=== PATIENT | male | born 1940 | race Caucasian/White ===

== ENCOUNTER 2018-04-24 15:45 | Inpatient (IN) | payer MEDICARE ==
[2018-04-24] MEDS ORDERED: Fentanyl 100 MCG/2 ML VIAL ONE (17:05)
--- NOTE | 2018-04-24 17:31 | CT ---
CT BRAIN WITHOUT CONTRAST: Date: 04/24/18 HISTORY: Fall. Headache. FINDINGS: No evidence of infarct, hemorrhage, midline shift, or abnormal extra-axial fluid collections are seen . The ventricular size is normal and the basilar cisterns are patent. The bony calvarium is intact. T he visualized paranasal sinuses and mastoid air cells are well aerated. IMPRESSION: No CT evidence of acute intracranial process. POS: [facility]
[2018-04-24] MEDS ORDERED: Acetaminophen 325 MG TAB PO PRN (17:44)
[2018-04-24] MEDS ORDERED: Milk Of Magnesia 30 ML UDCUP PO PRN (17:44)
[2018-04-24] MEDS ORDERED: Ondansetron PF 4 MG/2 ML Vial IV PRN (17:44)
[2018-04-24] MEDS ORDERED: [UNRECOGNIZED DRUG - OTHER] FS PRN (17:45)
[2018-04-24] MEDS: Sodium Chloride 0.9% 120 ML IV SCH (19:56)
[2018-04-24] MEDS: traMADol HCl 50 MG TAB PO PRN (19:56)
[2018-04-24 20:20] VITALS: BMI 28.8
[2018-04-24] MEDS: Fentanyl 100 MCG/2 ML VIAL SLOW IVP PRN (23:19)
--- NOTE | 2018-04-25 01:03 | CON ---
DATE OF CONSULTATION: 04/24/2018 CHIEF COMPLAINT: Right hip pain. HISTORY OF PRESENT ILLNESS: Mr. Fraser is a 77-year-old male. The patient fell in his home last ni ght. He lost his balance and tripped. He was unable to ambulate. He was unable to arise. He crawl ed around his house. It took most of today until he was found. He was taken to [facility] in [place] by EMS. X-rays were obtained, which demonstrated a femoral neck fracture. He was transferred to [place] for further care. He is comfortable currently. He has received intravenou s fluids. He has been found to have rhabdomyolysis. PAST MEDICAL HISTORY: Atrial fibrillation or flutter, hypertension, hyperlipidemia, GERD, obesity. PAST SURGICAL HISTORY: Left knee arthroscopic surgery, history of hemorrhoid surgery in the past. ALLERGIES: None. FAMILY MEDICAL HISTORY: Noncontributory. SOCIAL HISTORY: The patient denies alcohol, tobacco or drug use. He lives independently. He does n ot use a cane or a walker. REVIEW OF SYSTEMS: Positive for right hip pain with movement, otherwise negative 10-point review of systems. IMAGES: X-rays of the right hip are reviewed. These demonstrate an acute displaced femoral neck fra cture on the right side. PHYSICAL EXAMINATION: VITAL SIGNS: Stable. GENERAL: The patient is alert and oriented, sitting upright, in no apparent distress. RESPIRATORY: Breathing comfortably. CARDIOVASCULAR: Pulses palpable and regular. MUSCULOSKELETAL: The patient's right leg is shortened and externally rotated. He has intact neurova scular status distally. He is able to flex and extend the foot and ankle and toes. Palpable pulses. IMPRESSION: Elderly male, status post fall with right femoral neck fracture. PLAN: At this point, the patient will be admitted to the hospital. He will need intravenous fluids for his rhabdomyolysis. He will need a repeat CK exam. He will be n.p.o. at midnight in preparation for surgery tomorrow. The patient's femoral neck fracture will be treated with hemiarthroplasty of the hip to restore function, mobility and allow early mobilization. Risks do include infection, pain , scarring, nerve or vascular injury, instability and others. He will have appropriate DVT prophylax is and antibiotic prophylaxis.
[2018-04-25] MEDS: Sodium Chloride 0.9% 1,000 ML IV SCH ×3 (01:19→22:59)
[2018-04-25] MEDS: Sodium Chloride 0.9% 120 ML IV SCH ×2 (01:19→01:20)
--- NOTE | 2018-04-25 01:58 | HP ---
DATE OF ADMISSION: 04/24/2018 CHIEF COMPLAINT: Fall. HISTORY OF PRESENT ILLNESS: This is a 77-year-old male who presents with injuries sustained from a fall early this morning. He was limited in mobility after and had a difficult time notifying anyone spent a lot of time lying on the ground throughout the day. He has been found to have a mild rhabdomyolysis as well as a hip fracture. He is confused of the events to some extents and states to me that he remembers everything that happened. No previous history of multiple falls. This has never happened to him before. He is being admitted by the Trauma Service and Dr. Colorado has seen for the hip fracture. PAST MEDICAL HISTORY: Includes atrial flutter, hypertension, GERD, depression. MEDICINES: Flecainide, hydrochlorothiazide, BuSpar and aspirin are the ones he can remember. PAST SURGICAL HISTORY: Includes knee scope. ALLERGIES: No known drug allergies. SOCIAL HISTORY: No smoking, alcohol or other drugs. REVIEW OF SYSTEMS: Otherwise, negative unless described above. He specifically denies chest pain, dyspnea, diplopia. No nausea, vomiting, no abdominal pain, no other extremity pain. PHYSICAL EXAMINATION: VITAL SIGNS: Blood pressure is 125/60, his pulse is 104, respirations 12. CRANIOFACIAL: No craniofacial trauma. HEENT: Sclerae anicteric. Oropharynx is clear. NECK: No lymphadenopathy. No ecchymoses, no bruits, no tenderness on palpation to posterior C-spine. LUNGS: Bilateral clear breath sounds. HEART: Regular rate. ABDOMEN: Soft, nontender. Bilateral lower extremities. Warm and well perfused with palpable pulses. Motor and sensory intact. LABORATORY DATA AND SCANS: X-rays from outside hospital. Plain films show right femoral neck fracture. CT head here is negative. ASSESSMENT: 1. Fall with right hip fracture. 2. History of chronic atrial flutter. 3. Rhabdomyolysis: mild by report. Labs not available for review here. PLAN: Admit to Trauma Service, Dr. Colorado is at bedside as well. Operative repair tomorrow. We will hydrate for the mild rhabdomyolysis tonight. Repeat labs in am. MTDD
[2018-04-25] MEDS: traMADol HCl 50 MG TAB PO PRN ×2 (03:35→09:18)
[2018-04-25 06:18] LABS: #Monocytes 0.9 thou/uL (0.11-0.59); #Neutrophils 7.7 thou/uL (1.40-6.50); %Eosinophils 0.3 % (0.0-10.0); %Lymphocytes 10.6 % (21.0-51.0); %Monocytes 9.2 % (0.0-10.0); %Neutrophils 79.9 % (42.0-75.0); Hemoglobin 12.9 g/dL (14.0-18.0); Mean Corpuscular HGB CONC 31.1 g/dL (32.0-36.0); Mean Corpuscular Volume 89.9 fL (78.0-98.0); Mean Platelet Volume 10.1 fL (7.4-10.4); PLT Morphology Comment Appears Decreased; Platelet Count 110 thou/uL (130-400); RBC Distribution Width 13.2 % (11.5-14.5); Red Blood Cell (RBC) Count 4.61 mill/uL (4.70-6.10); White Blood Cell (WBC) Count 9.7 thou/uL (4.8-10.8)
[2018-04-25] MEDS: Fentanyl 100 MCG/2 ML VIAL SLOW IVP PRN ×2 (07:03→12:11)
[2018-04-25 08:19] LABS: ALT (SGPT) 29 U/L (8-55); AST (SGOT) 78 U/L (5-34); Albumin 3.1 g/dL (3.4-4.8); Alkaline Phosphatase 102 U/L (40-150); Anion Gap 10 mmol/L (10-20); BUN (Urea Nitrogen) 18 mg/dL (8.4-25.7); Bilirubin, Total 2.4 mg/dL (0.2-1.2); Calc. Creatinine Clearance 121 mL/min (70-130); Calcium 8.3 mg/dL (7.8-10.44); Carbon Dioxide 23 mmol/L (23-31); Chloride 109 mmol/L (98-107); Estimated GFR-MDRD Greater than 90; Globulin 2.2 g/dL (2.4-3.5); Glucose 93 mg/dL (83-110); Potassium 3.9 mmol/L (3.5-5.1); Protein, Total 5.3 g/dL (5.8-8.1); Sodium 138 mmol/L (136-145)
[2018-04-25 08:51] LABS: CK (CPK) 4334 U/L (30-200)
[2018-04-25] MEDS ORDERED: Dexamethasone 20 MG/5 ML VIAL ONE (09:09)
[2018-04-25] MEDS ORDERED: Lidocaine 1% PF 5 ML VIAL ONE (09:09)
[2018-04-25] MEDS ORDERED: Ondansetron PF 4 MG/2 ML Vial ONE (09:09)
[2018-04-25] MEDS ORDERED: PROPOFOL 200 MG/20 ML VIAL ONE (09:09)
[2018-04-25] MEDS ORDERED: Glycopyrrolate 0.2 MG/ML 5 ML SYRINGE ONE (09:09)
[2018-04-25] MEDS ORDERED: CEFAZOLIN/Water 2 GM/20 ML SYRINGE SLOW IVP SCH ×2 (15:00→21:05)
--- NOTE | 2018-04-25 16:42 | PRG ---
DATE OF SERVICE: 04/25/2018 SUBJECTIVE: Mr. Fraser is a 77-year-old man who fell down from a ground level position. After lyin g down for several hours, he was able to crawl around the house until he reached his phone to [employer] for help. He was evaluated in the Emergency Department in [place] and was transferred to [facility] in [place], [place] for upper level workup and care of closed right femoral neck fracture. PAST MEDICAL HISTORY: Pertinent for type 2 diabetes mellitus, chronic anxiety disorder, gastroesopha geal reflux disease, chronic depression and atrial flutter. He also has a history of essential hyper tension. PAST SURGICAL HISTORY: Pertinent for left knee arthroscopy many years ago. MEDICATIONS: I have reviewed his home medications. ALLERGIES: He has no drug allergies. BASELINE FUNCTION: The patient lives independently. He is able to ambulate more than a block withou t any shortness of breath. He drives himself. In fact, he also picks up his grandson from school [employer] for the rest of us and does his own grocery shopping without any difficulties. He ambulates without the use of any aids. He denies any baseline shortness of breath, chest pain or syncope. Currently, the patient rep orts adequate pain control. He had no nausea or vomiting. He has no dyspnea. OBJECTIVE: VITAL SIGNS: This morning included blood pressure 109/68, pulse is 91, respiratory rate is 18, tempe rature 97.7 degrees Fahrenheit, oxygen saturation 97% on 2 liters by nasal cannula oxygen. HEENT: Reveals normocephalic and atraumatic. Pupils are equal, round and reactive to light and acco mmodation. Note that head CT scan yesterday revealed no acute intracranial abnormality. HEART: Reveals regular rate and rhythm. No murmurs or gallops auscultated. CHEST: Clear to auscultation bilaterally. Breathing is regular and unlabored. ABDOMEN: Soft, nontender, nondistended. EXTREMITIES: Reveals 2+ radial and pedal pulses bilaterally. No ankle edema is present. NEUROLOGIC: Reveals no focal deficits present. LABORATORY DATA: Today includes a CBC with 9700 white blood cells, hemoglobin and hematocrit 12.9 an d 41.4 respectively, platelet count is 110,000. Metabolic profile, sodium 138, potassium is 3.9, chl oride is 109, bicarbonate is 23, BUN 18, creatinine 0.72, glucose 93, total bilirubin 2.4, AST and AL T noted at 78 and 29 respectively. Creatinine kinase is 4334. IMPRESSION: 1. Post injury day number 2 status post ground level fall. 2. Closed right femoral neck fracture. 3. Acute rhabdomyolysis. PLAN: 1. The patient is certainly hemodynamically and neurologically stable to proceed with operative inte rvention to the femoral neck fracture. He is at moderate risk for perioperative cardiopulmonary even t. 2. We will continue to monitor the patient's urinary output and trend his BUN and creatinine to rule out acute kidney injury secondary to rhabdomyolysis. 3. The patient has been evaluated by PM taryn García for possible inpatient rehabilitation post discharge. Above findings and plan discussed with the patient who indicates understanding of the information giv en. I have answered all his questions.
[2018-04-25] MEDS ORDERED: CEFAZOLIN 2 GM/50 ML BAG ONE (18:48)
[2018-04-25] MEDS ORDERED: Fentanyl 100 MCG/2 ML VIAL ONE ×2 (18:50→20:11)
[2018-04-25] MEDS ORDERED: Lidocaine 2% Jelly 5 ML TUBE ONE (18:50)
[2018-04-25] MEDS ORDERED: Midazolam HCl 2 mg/2 ml Vial ONE (21:09)
[2018-04-25] MEDS ORDERED: Promethazine HCl 25 MG/ML VIAL SLOW IVP PRN (21:38)
[2018-04-25] MEDS ORDERED: Promethazine HCl 25 MG/ML VIAL IM PRN (21:38)
[2018-04-25] MEDS ORDERED: Ondansetron HCl/PF 4 MG/2 ML Vial IVP PRN (21:38)
[2018-04-25] MEDS ORDERED: Midazolam HCl 2 mg/2 ml Vial SLOW IVP SCH (21:45)
--- NOTE | 2018-04-25 22:14 | RAD ---
RIGHT HIP TWO VIEWS: 04/25/18 INDICATION: History of hip fracture. COMPARISON: Prior exam dated 04/24/18. IMPRESSION: Since the comparison examination, there has been interval placement of a right hip endoprosthesis. Pr osthetic component projects in the expected position. POS: [facility]
[2018-04-25] MEDS: Flecainide 50 MG TAB PO SCH (22:58)
[2018-04-25] MEDS: busPIRone HCl 10 MG TAB PO SCH (22:58)
[2018-04-25] MEDS ORDERED: Aspirin 81 mg Enteric Coated Tablet PO SCH (23:00)
[2018-04-26] MEDS: Sodium Chloride 0.9% 1,000 ML IV SCH (04:05)
[2018-04-26] MEDS: CEFAZOLIN 2 GM/50 ML-DEXTROSE 2 GM in Premix Bag 1 BAG IVPB SCH ×2 (04:05→12:47)
[2018-04-26] MEDS: traMADol HCl 50 MG TAB PO PRN ×3 (06:48→18:05)
--- NOTE | 2018-04-26 08:19 | PQF ---
CLINICAL DOCUMENTATION IMPROVEMENT CLARIFICATION FORM: ICD-10 Updated PLEASE DO AN ADDENDUM TO THE PROGRESS NOTE WITH ANY DOCUMENTATION UPDATES OR ADDITIONS AND CARRY THROUGH TO DC SUMMARY. THANK YOU. DATE: ATTN: DR. JOE BERRY Please exercise your independent, professional judgment in responding to the clarification form. Clinical indicators are provided on the bottom of this form for your review. Please check appropriate box(s): [ ] Rhabdomyolysis, Non-traumatic [ x ] Rhabdomyolysis, Traumatic [ ] Other diagnosis [ ] Unable to determine For continuity of documentation, please document condition throughout progress notes and discharge summary. Thank You. CLINICAL INDICATORS - SIGNS / SYMPTOMS / LABS CREATINE KINASE: 4334 (04/25) ER PHYSICIAN DOCUMENTATION 04/24: REPORTED THAT PATIENT LIVES ALONE, EXPERIENCED FALL & WAS DOWN 24 HRS BEFORE HE WAS FOUND. FINAL DIAGNOSES: R HIP FRACTURE, RHABDOMYOLYSIS H&P DOCUMENTATION 04/24: ...PRESENTS W/INJURIES SUSTAINED FROM A FALL EARLY THIS MORNING. ...HAD A DIFFICULT TIME NOTIFYING ANYONE & SPENT A LOT OF TIME LYING ON THE GROUND THROUGHOUT THE DAY. HE HAS BEEN FOUND TO HAVE A MILD RHABDOMYOLYSIS WELL HIP FRACTURE. ASSESSMENT: 3) RHABDOMYOLYSIS PN 04/25: ...FELL DOWN FROM A GROUND LEVEL POSITION. AFTER LYING DOWN FOR SEVERAL HOURS WAS ABLE TO CRAWL AROUND THE HOUSE UNTIL HE REACHED HIS PHONE. ASSESSMENT: 3) ACUTE RHABDOMYOLYSIS RISK FACTORS: S/P FALL AND LAYING ON GROUND APPROXIMATELY 24 HRS ELEVATED CREATINE KINASE (4334) R FEMORAL NECK FRACTURE TREATMENT: IVF (NS 04/24 - PRESENT) THANK YOU! Heather (This form is maintained as a part of the permanent medical record) Viewer 2015 [employer]. All Rights Reserved Heather Garland RN, BSN [email or web address] Office: [phone] [facility]
[2018-04-26 08:25] LABS: #Lymphocytes 0.6 thou/uL (1.20-3.40); %Basophils 0.1 % (0.0-1.0); %Eosinophils 0.2 % (0.0-10.0); %Lymphocytes 6.1 % (21.0-51.0); %Monocytes 10.1 % (0.0-10.0); %Neutrophils 83.5 % (42.0-75.0); Hemoglobin 11.4 g/dL (14.0-18.0); Mean Corpuscular HGB CONC 31.2 g/dL (32.0-36.0); Mean Corpuscular Hemoglobin 28.3 pg (27.0-31.0); Mean Corpuscular Volume 90.7 fL (78.0-98.0); Mean Platelet Volume 9.6 fL (7.4-10.4); Platelet Count 103 thou/uL (130-400); RBC Distribution Width 12.7 % (11.5-14.5); Red Blood Cell (RBC) Count 4.01 mill/uL (4.70-6.10); White Blood Cell (WBC) Count 9.6 thou/uL (4.8-10.8)
[2018-04-26] MEDS ORDERED: traMADol HCl 50 MG TAB PO SCH (08:45)
[2018-04-26] MEDS ORDERED: PEPPERMINT OIL PO SCH (09:00)
[2018-04-26] MEDS ORDERED: (Vortioxetine Hydrobromide [Trintellix] 10 MG) PO SCH (09:00)
[2018-04-26] MEDS ORDERED: (Linaclotide [Linzess] 1 TAB) PO SCH (09:00)
[2018-04-26] MEDS ORDERED: Aspirin 81 mg Enteric Coated Tablet PO SCH (09:00)
[2018-04-26] MEDS: Flecainide 50 MG TAB PO SCH ×2 (09:55→20:41)
[2018-04-26] MEDS: Polyethylene Glycol 3350 17 GM Packet PO SCH (09:56)
[2018-04-26] MEDS: Cyanocobalamin (Vitamin B-12) 1,000 MCG TAB PO SCH (09:57)
[2018-04-26] MEDS: Senokot 8.6 MG TAB PO SCH ×2 (09:57→20:43)
[2018-04-26] MEDS: Aspirin 81 mg Enteric Coated Tablet PO SCH ×2 (09:57→20:43)
[2018-04-26] MEDS: Acetaminophen 500 MG TAB PO SCH ×3 (09:57→20:55)
[2018-04-26] MEDS: busPIRone HCl 10 MG TAB PO SCH ×2 (09:58→20:42)
--- NOTE | 2018-04-26 11:30 | PRG ---
DATE OF SERVICE: 04/26/2018 SUBJECTIVE: Mr. Fraser is a 77-year-old man who is postoperative day #1 status post surgical repair of right femoral neck fracture. He is awake and alert today. He reports adequate pain control. He is tolerating a regular diet. He denies any bowel movement; however, is passing flatus. Urinary ou tput is adequate. OBJECTIVE: VITAL SIGNS: Today includes blood pressure 116/62, pulse 94, respirations 16, temperature 97.5 degre es Fahrenheit, oxygen saturation is 91% on room air. HEART: Reveals regular rate and rhythm, no murmurs or gallops auscultated. CHEST: Clear to auscultation bilaterally. Breathing is regular and unlabored. ABDOMEN: Soft, nontender, nondistended. EXTREMITIES: Reveal 2+ radial and pedal pulses bilaterally. No ankle edema is present. NEUROLOGIC: Reveals no focal deficits present. LABORATORY DATA: Today includes a CBC with 9600 white blood cells, hemoglobin and hematocrit are sta ble at 11.4 and 36.3 respectively. Platelet count is also stable at 103,000. Metabolic profile is p ending at time of this dictation. IMPRESSION: 1. Postop day #1, status post repair of a closed hip fracture. 2. The patient is hemodynamically stable. PLAN: 1. We will discontinue IV fluids and Moeller catheter. 2. Activity will be increased per physical and occupational therapy. 3. The patient has been evaluated by PM&R for possible inpatient rehabilitation post-discharge. The above findings and plan discussed with patient who indicates understanding of the information alberta en. I have answered his questions.
[2018-04-26 11:42] LABS: Anion Gap 8 mmol/L (10-20); BUN (Urea Nitrogen) 15 mg/dL (8.4-25.7); CK (CPK) 1837 U/L (30-200); Calc. Creatinine Clearance 132 mL/min (70-130); Carbon Dioxide 27 mmol/L (23-31); Chloride 106 mmol/L (98-107); Estimated GFR-MDRD Greater than 90; Glucose 115 mg/dL (83-110); Magnesium 1.6 mg/dL (1.6-2.6); Phosphorus 2.3 mg/dL (2.3-4.7); Potassium 4.1 mmol/L (3.5-5.1); Sodium 137 mmol/L (136-145)
[2018-04-26] MEDS: traMADol HCl 50 MG TAB PO SCH ×2 (12:47→18:01)
--- NOTE | 2018-04-26 22:07 | OP ---
DATE OF PROCEDURE: 04/25/2018 PREOPERATIVE DIAGNOSIS: Right femoral neck fracture. POSTOPERATIVE DIAGNOSIS: Right femoral neck fracture. SURGICAL PROCEDURE: Right hip hemiarthroplasty. ANESTHESIA: General. SURGEON: Pedro Araiza M.D. SHOE CASER: Waqar Subramanian PA-C. ESTIMATED BLOOD LOSS: 200 mL IMPLANTS: DePuy [place] size 7 stem with a 28 x 56 bipolar cup and a 28 plus 5 Articul/Jeramy femoral he ad. COMPLICATIONS: None. DRAINS: None. SPECIMEN: Explanted femoral head discarded. OUTCOME: Stable right hip hemiarthroplasty. INDICATIONS: The patient is a 77-year-old gentleman status post ground level fall sustaining a displ aced right femoral neck fracture. After discussion with the patient and his family including risks a nd benefits, we decided to proceed with right hip hemiarthroplasty in hopes of restoring his ability to ambulate and provide pain relief. Informed consent has been obtained. I believe all questions an swered. DESCRIPTION OF PROCEDURE: The patient was brought to the operating room and a timeout performed foll owed by induction of general anesthesia. Next, the patient was positioned in a left lateral decubitu s position and a sterile prep and drape was performed of the right lower extremity. Next, a curvilin ear incision was made centered over the greater trochanter. After skin was sharply incised, dissecti on was carried down to the underlying tensor fascia and fascia leobardo. This structure was incised in l ine with skin incision and reflected anteriorly and posteriorly. Next, the trochanteric bursa was sw ept off the short external rotators. An elevator was passed under the abductors and the piriformis c learly identified. The piriformis was released from the posterior aspect of the proximal femur as we re the superior and inferior gemelli. These structures were tagged with number 2 Vicryl and then ref lected posteriorly. Next, a T capsulotomy was performed and this revealed the underlying femoral hea d and its femoral neck fracture. A T-handle corkscrew device was then used to remove the femoral hea d from the hip. Excess bone fragments were also removed. Next, an oscillating saw was used to make a femoral neck cut. This was followed by insertion of a T-handle awl to obtain access to the intrame dullary canal. A lateralizing reamer was then used followed by progressive T-handle awls up to a siz e 7. Broaching was started at size 3 and continued up to size 7 that gave good fit, fill and stabili ty. As such, the size 7 broach was left in place and a plus 5 bipolar trial was applied to the stem and the hip was reduced with what was felt to be jehovah's witness of leg lengths and good stability. As s uch, the hip was again dislocated and trial components were removed. The stem over the femoral canal was then irrigated with 3 liters of normal saline using Pulsavac as was the acetabular cup. The draian tabulum was again checked to ensure no bony fragments were left in place. Next, a size 7 stem was in serted into the femoral canal without difficulty and then the 28 x 56 bipolar cup was assembled and p laced on top of the stem. The hip was then reduced and found to have excellent stability when the hi p was brought into flexion and then internally rotated. At this point, closure was performed. Numbe r 2 Vicryl was used to reapproximate the joint capsule followed by number 2 Vicryl to reattach the sh ort external rotators to the posterior aspect of the femur. Next, number 1 Vicryl was used to close the tensor fascia and fascia leobardo followed by 0 Vicryl for Dhaval's fascia, 2-0 Vicryl subcutaneously and lisseth for the skin. A Xeroform gauze and tape dressing was applied to the thigh and then the patient was transferred to recovery room in stable condition. There were no complications and he virgil erated the procedure well.
[2018-04-27] MEDS: traMADol HCl 50 MG TAB PO SCH ×4 (01:24→18:34)
[2018-04-27] MEDS: Acetaminophen 500 MG TAB PO SCH ×4 (02:20→21:13)
[2018-04-27] MEDS: Cyanocobalamin (Vitamin B-12) 1,000 MCG TAB PO SCH (08:57)
[2018-04-27] MEDS: Polyethylene Glycol 3350 17 GM Packet PO SCH (08:57)
[2018-04-27] MEDS: Aspirin 81 mg Enteric Coated Tablet PO SCH ×2 (08:57→21:13)
[2018-04-27] MEDS: Senokot 8.6 MG TAB PO SCH ×2 (08:57→21:13)
[2018-04-27] MEDS: busPIRone HCl 10 MG TAB PO SCH ×2 (08:57→21:13)
[2018-04-27] MEDS ORDERED: Docusate 100 MG CAP PO SCH (09:00)
[2018-04-27] MEDS ORDERED: Hydrochlorothiazide 25 MG TAB PO SCH (09:00)
[2018-04-27 09:53] LABS: #Eosinphils 0.2 thou/uL (0.0-0.7); #Neutrophils 6.9 thou/uL (1.40-6.50); %Basophils 0.1 % (0.0-1.0); %Eosinophils 1.9 % (0.0-10.0); %Lymphocytes 10.7 % (21.0-51.0); %Monocytes 11.1 % (0.0-10.0); %Neutrophils 76.2 % (42.0-75.0); Hemoglobin 11.4 g/dL (14.0-18.0); Mean Corpuscular HGB CONC 32.3 g/dL (32.0-36.0); Mean Corpuscular Hemoglobin 29.1 pg (27.0-31.0); Mean Platelet Volume 9.5 fL (7.4-10.4); Platelet Count 113 thou/uL (130-400); RBC Distribution Width 12.5 % (11.5-14.5); Red Blood Cell (RBC) Count 3.92 mill/uL (4.70-6.10)
[2018-04-27] MEDS: Flecainide 50 MG TAB PO SCH ×2 (10:01→21:13)
[2018-04-27] MEDS: Bisacodyl 10 MG SUPP PR SCH (11:49)
--- NOTE | 2018-04-27 12:01 | PRG ---
DATE OF SERVICE: 04/27/2018 SUBJECTIVE: Mr. Fraser is a 77-year-old male who is postoperative day #2 status post ORIF of the ri ght femoral neck fracture by Dr. Araiza. He is awake and alert. Pain is controlled. He is tolera ting his diet. I have encouraged him to complete IS. He has not had any bowel movements, but is pas sing flatus. He is on the bowel regimen and a rehab screen is pending. He must have a bowel movemen t prior to being moved to rehab. OBJECTIVE: VITAL SIGNS: Temperature is 97.8, blood pressure 132/74, heart rate is 84, respiratory rate 20. He is 93% on room air. GENERAL: He is a 77-year-old male in bed. HEART: Regular rate and rhythm. No murmurs. PULMONARY: Bilateral breath sounds clear to auscultation upper and lower bilaterally. Regular breat mayte pattern. ABDOMEN: Soft, nontender, nondistended. EXTREMITIES: Strong pulses bilaterally. No edema. He does have pain about the right hip. Dressing is dry. LABORATORY DATA: From today, white blood cell count of 9.0, platelets are 113 which has improved. H emoglobin and hematocrit 11.4 and 35.3, respectively. Glucose is 100. CK has been down trending. ASSESSMENT AND PLAN: 1. Right hip fracture, status post open reduction and internal fixation. 2. Rhabdomyolysis, mild, and improving. 3. Acute traumatic pain. 4. Constipation. 5. Thrombocytopenia that is improving. PLAN: 1. Continue diet. 2. Bowel regimen. We will do a suppository today to try to facilitate bowel movement. 3. Rehab screen has been placed. They are holding a bed for tomorrow. 4. Continue to work with PT. 5. Anticipate discharge to rehab facility in the ensuing days. 6. Continue all other supportive care. 7. Prophylaxis with aspirin b.i.d. and a regular diet for GI prophylaxis. This plan was discussed with Dr. Heart and can be updated as needed.
[2018-04-27] MEDS: traMADol HCl 50 MG TAB PO PRN (12:56)
[2018-04-28] MEDS: BIFIDOBACTERIUM INFANTIS PO SCH ×2 (00:34→00:35)
[2018-04-28] MEDS: traMADol HCl 50 MG TAB PO SCH ×3 (01:42→14:46)
[2018-04-28] MEDS: Acetaminophen 500 MG TAB PO SCH ×3 (02:31→14:46)
[2018-04-28] MEDS: traMADol HCl 50 MG TAB PO PRN (07:09)
[2018-04-28] MEDS: Aspirin 81 mg Enteric Coated Tablet PO SCH (09:46)
[2018-04-28] MEDS: busPIRone HCl 10 MG TAB PO SCH (09:46)
[2018-04-28] MEDS: Cyanocobalamin (Vitamin B-12) 1,000 MCG TAB PO SCH (09:47)
[2018-04-28] MEDS: Flecainide 50 MG TAB PO SCH (09:47)
[2018-04-28] MEDS: Senokot 8.6 MG TAB PO SCH (09:47)
[2018-04-28] MEDS: Bisacodyl 10 MG SUPP PR SCH (09:47)
[2018-04-28] MEDS: Polyethylene Glycol 3350 17 GM Packet PO SCH ×2 (09:48→18:09)
[2018-04-28 16:38] VITALS: BP 126/75; TEMP 98
[2018-04-29] MEDS ORDERED: (Linaclotide [Linzess] 1 TAB) PO SCH (09:00)
[2018-04-29] MEDS ORDERED: (Vortioxetine Hydrobromide [Trintellix] 10 MG) PO SCH (09:00)
--- NOTE | 2018-04-30 10:30 | DIS ---
DATE OF ADMISSION: 04/24/2018 DATE OF DISCHARGE: 04/28/2018 ADMISSION DIAGNOSES: 1. Status post fall. 2. Right hip fracture. 3. History of chronic atrial flutter. 4. Possible rhabdomyolysis. DISCHARGE DIAGNOSES: 1. Status post fall. 2. Right hip fracture. 3. History of chronic atrial flutter. 4. Possible rhabdomyolysis. CONSULTATIONS: Davon Colorado M.D., Orthopedic Surgery. PROCEDURES: Right hip hemiarthroplasty 04/25/[address] Araiza, Orthopedic Surgery. HOSPITAL COURSE: Rajesh Fraser is a 77-year-old gentleman who presented to [place] emergency room status post mechanical fall. The patient was seen and evaluated and found to have a right hip fractu re with evidence of rhabdomyolysis. He was seen and evaluated by Orthopedic Surgery. On 04/25/2018, he underwent operative intervention to his injury. Postoperatively, the patient did well. He was w orking with physical therapy. He was tolerating a general diet. The patient was accepted to [facility] rehabilitation on 04/28/2018 and cleared for discharge by the consulting team. DISCHARGE DISPOSITION: Inpatient rehabilitation. DISCHARGE CONDITION: Good. PHYSICAL EXAMINATION: VITAL SIGNS: Temperature 97.3, pulse 90, respiratory rate 18, O2 sat 94% on room air, blood pressure 133/76. GENERAL: Resting in bed, in no acute distress. PULMONARY: Normal work of breathing, symmetric rise. CARDIOVASCULAR: Regular rate and rhythm. GASTROINTESTINAL: Abdomen is soft, nontender, nondistended. Bowel sounds are positive. MUSCULOSKELETAL: Moves all extremities x4. NEUROLOGIC: No focal deficit is noted. DISCHARGE INSTRUCTIONS: Discharge instructions were provided to the patient and the accepting facili ty. The patient should maintain posterior hip precautions, but is weightbearing as tolerated. He sh ould keep his wound clean and dry. Local wound care per accepting facility. FOLLOWUP APPOINTMENTS: The patient is to follow up with his primary care provider as needed. He sia uld follow up with Orthopedic Surgery in approximately 14 days. He does not need to follow up formal ly with Trauma Services, but may call our office with any questions. DISCHARGE MEDICATIONS: As documented in the electronic medical record, a list of which was provided to the accepting facility. This is merely a summary of the patient's hospitalization. For more in depth information, please see his medical record in its entirety.
== END 2018-04-28 18:22 | DRG 956 ==
LOC: ERS 15:45 → SURG A 19:12
PROVIDERS: ADMIT Surgery; ATTEND Surgery
PROC: 0SRR0JZ Replacement of Right Hip Joint, Femoral Surface with Synthetic Substitute, Open Approach (ICD-10-PCS; principal; 2018-04-25)
DX: S72.001A Fracture of unspecified part of neck of right femur, initial encounter for closed fracture (principal); T79.6XXA Traumatic ischemia of muscle, initial encounter; K21.9 Gastro-esophageal reflux disease without esophagitis; F41.9 Anxiety disorder, unspecified; E11.9 Type 2 diabetes mellitus without complications; Z79.899 Other long term (current) drug therapy; K59.00 Constipation, unspecified; D69.6 Thrombocytopenia, unspecified; W18.30XA Fall on same level, unspecified, initial encounter; Y92.009 Unspecified place in unspecified non-institutional (private) residence as the place of occurrence of the external cause; I48.2 Chronic atrial fibrillation
CPT/HCPCS: 36415; 36416; 70450; 80048; 80053; 82550; 83735; 84100; 85025; 93005; 96361; 96374; G0390; G8978-GP-CL; G8979-GP-CJ; J1100; J2001; J2250; J2405; J2704; J3010

== ENCOUNTER 2022-03-15 09:32 | Observation (INO) | payer MEDICARE ==
[2022-03-15 10:30] LABS: #Eosinphils 0.1 thou/uL (0.0-0.7); #Lymphocytes 1.4 thou/uL (1.20-3.40); #Monocytes 0.7 thou/uL (0.11-0.59); #Neutrophils 4.6 thou/uL (1.40-6.50); %Basophils 0.2 % (0.0-1.0); %Eosinophils 0.8 % (0.0-10.0); %Lymphocytes 20.3 % (21.0-51.0); %Monocytes 9.8 % (0.0-10.0); Hemoglobin 15.2 g/dL (14.0-18.0); Mean Corpuscular HGB CONC 31.4 g/dL (32.0-36.0); Mean Corpuscular Hemoglobin 29.2 pg (27.0-31.0); Mean Corpuscular Volume 93.2 fL (78.0-98.0); Mean Platelet Volume 9.7 fL (7.4-10.4); Platelet Count 131 thou/uL (130-400); RBC Distribution Width 12.9 % (11.5-14.5); Red Blood Cell (RBC) Count 5.19 mill/uL (4.70-6.10); White Blood Cell (WBC) Count 6.7 thou/uL (4.8-10.8)
[2022-03-15 10:54] LABS: ALT (SGPT) 23 U/L (8-55); AST (SGOT) 20 U/L (5-34); Albumin 3.8 g/dL (3.4-4.8); Alkaline Phosphatase 123 U/L (40-110); Anion Gap 14 mmol/L (10-20); BUN (Urea Nitrogen) 15 mg/dL (8.4-25.7); Bilirubin, Total 0.9 mg/dL (0.2-1.2); Calc. Creatinine Clearance 0 mL/min (70-130); Calcium 9.1 mg/dL (7.8-10.44); Carbon Dioxide 28 mmol/L (23-31); Chloride 103 mmol/L (98-107); Estimated GFR 87; Globulin 2.6 g/dL (2.4-3.5); Glucose 136 mg/dL (83-110); Lipase 19 U/L (8-78); Potassium 3.7 mmol/L (3.5-5.1); Protein, Total 6.4 g/dL (5.8-8.1); Sodium 141 mmol/L (136-145)
[2022-03-15] MEDS ORDERED: Nitroglycerin 0.4 MG TAB 1 EACH ONE ×2 (15:41→15:42)
[2022-03-15 16:37] LABS: Troponin I Less than 0.010 ng/mL (< 0.028)
[2022-03-15 16:55] LABS: Hemoglobin A1c 5.4 % (4.0-6.0)
[2022-03-15 17:06] LABS: Cardiac Risk 2.8 (Less than 4.5); Phosphorus 2.9 mg/dL (2.3-4.7)
[2022-03-15 17:07] VITALS: BMI 29.0
[2022-03-15] MEDS ORDERED: Linaclotide [Linzess] 145 MCG Capsule PO PRN (17:45)
[2022-03-15 18:50] LABS: Troponin I Less than 0.010 ng/mL (< 0.028)
[2022-03-15] MEDS: Flecainide 50 MG TAB PO SCH (19:50)
[2022-03-15] MEDS: Acetaminophen 500 MG TAB PO PRN (19:50)
[2022-03-15] MEDS: busPIRone HCl 10 MG TAB PO SCH (19:50)
[2022-03-15 20:13] LABS: SARS-CoV-2 NAA Rapid Test Not Detected (NotDetected)
[2022-03-16 04:41] LABS: #Eosinphils 0.1 thou/uL (0.0-0.7); #Lymphocytes 2.1 thou/uL (1.20-3.40); #Monocytes 0.7 thou/uL (0.11-0.59); #Neutrophils 4.7 thou/uL (1.40-6.50); %Basophils 0.2 % (0.0-1.0); %Eosinophils 1.2 % (0.0-10.0); %Lymphocytes 26.8 % (21.0-51.0); %Monocytes 9.7 % (0.0-10.0); Hemoglobin 14.8 g/dL (14.0-18.0); Mean Corpuscular HGB CONC 31.6 g/dL (32.0-36.0); Mean Corpuscular Hemoglobin 29.6 pg (27.0-31.0); Mean Corpuscular Volume 93.5 fL (78.0-98.0); Mean Platelet Volume 9.8 fL (7.4-10.4); Platelet Count 128 thou/uL (130-400); RBC Distribution Width 12.8 % (11.5-14.5); Red Blood Cell (RBC) Count 5.02 mill/uL (4.70-6.10); White Blood Cell (WBC) Count 7.6 thou/uL (4.8-10.8)
[2022-03-16 05:11] LABS: ALT (SGPT) 20 U/L (8-55); AST (SGOT) 17 U/L (5-34); Albumin 3.6 g/dL (3.4-4.8); Alkaline Phosphatase 115 U/L (40-110); Anion Gap 10 mmol/L (10-20); BUN (Urea Nitrogen) 14 mg/dL (8.4-25.7); Bilirubin, Total 1.1 mg/dL (0.2-1.2); Calc. Creatinine Clearance 98 mL/min (70-130); Calcium 8.9 mg/dL (7.8-10.44); Carbon Dioxide 29 mmol/L (23-31); Chloride 104 mmol/L (98-107); Estimated GFR 89; Globulin 2.4 g/dL (2.4-3.5); Glucose 90 mg/dL (83-110); Potassium 3.8 mmol/L (3.5-5.1); Sodium 139 mmol/L (136-145)
[2022-03-16] MEDS: Acetaminophen 500 MG TAB PO PRN (05:41)
[2022-03-16 08:09] VITALS: TEMP 97.5
[2022-03-16] MEDS: busPIRone HCl 10 MG TAB PO SCH (08:11)
[2022-03-16] MEDS ORDERED: Cyanocobalamin (Vitamin B-12) 1,000 MCG TAB PO SCH (09:00)
[2022-03-16] MEDS ORDERED: Enoxaparin Sodium 40 MG/0.4 ML SYRINGE SC SCH (09:00)
[2022-03-16] MEDS ORDERED: Hydrochlorothiazide 25 MG TAB PO SCH (09:00)
[2022-03-16] MEDS ORDERED: Aspirin 81 mg Enteric Coated Tablet PO SCH (09:00)
[2022-03-16] MEDS ORDERED: Vortioxetine Hydrobromide [Trintellix] 20 MG Tablet PO SCH (09:00)
[2022-03-16] MEDS: Flecainide 50 MG TAB PO SCH (12:50)
[2022-03-16 15:33] VITALS: BP 108/59
== END 2022-03-16 15:18 | disposition home health service (06) ==
LOC: ERS 09:32 → 2SW 15:24
PROVIDERS: ADMIT Emergency Medicine; ATTEND Emergency Medicine
DX: R07.89 Other chest pain (principal); I10 Essential (primary) hypertension; I48.92 Unspecified atrial flutter; K21.9 Gastro-esophageal reflux disease without esophagitis; I44.0 Atrioventricular block, first degree; E78.5 Hyperlipidemia, unspecified; K59.00 Constipation, unspecified; E11.9 Type 2 diabetes mellitus without complications; Z66 Do not resuscitate; Z79.82 Long term (current) use of aspirin; Z79.899 Other long term (current) drug therapy; Z20.822 Contact with and (suspected) exposure to COVID-19
CPT/HCPCS: 71045; 78452; 80053; 80061; 83036; 83690; 83735; 83880; 84100; 84484 ×2; 85025; 85379; 93005; 93017; 94760 ×2; 96372; 97535; 99285; A9500; G0378 ×3; U0002; 36415; 84443; J1650